=== PATIENT | male | born 1990 | race Caucasian/White ===

== ENCOUNTER 2017-02-21 17:44 | Emergency (ER) | payer OTHER ==
--- NOTE | ~2017-02-21 | CR210 ---
[facility] A Service of [facility] & [facility] RADIOLOGY TEXT RESULTS PATIENT: DAVID PATEL LOCATION: CFTX : 88 UNIT #: [id number] AGE: [address]: Mary Ann Mead APRN SEX: M ORDER DR: [id number] [facility] [address] [place], [place] [address] [id number] E MR#: [id number] Acc #: [id number] NAME: DAVID PATEL : 1990 SEX: M STUDY DATE/TIME: 02/21/2017 20:02 UNIT: [facility] ROOM: STUDY DESCRIPTION: CR Ribs Uni 2 View W PA Ch Lt Attending Physician: Mary Ann Mead A.P.R.N. Ordering Physician: Mary Ann Mead A.P.R.N. Primary Care Physician: Chloe IyerPAlejandraRKiki MEDICAL IMAGING REPORT This report is preliminary unless electronic signature is present EXAM PA chest with left rib detail series (7 images). Date: 02/21/2017 HISTORY Left rib pain. Mild congestion. Fell on concrete. Symptoms present for 3 days. COMPARISON None. FINDINGS Clear lungs. No pleural effusion or pneumothorax. Normal cardiothymic silhouette. No acute displaced left rib fracture is visualized. IMPRESSION No acute chest findings. No displaced left rib fracture. Dictated by... Cyndee Collazo M.D. THIS IS AN ELECTRONICALLY VERIFIED REPORT Cyndee Collazo M.D. at 02/25/2017 8:47 AM EVAN/jasmyne TD: 02/22/2017 02:06 JOB #: [id number] MEDICAL IMAGING REPORT Page 1 of 1 COPY
== END 2017-02-21 20:35 | disposition home or self-care (01) ==
LOC: CFTX 17:44 → CED 17:44 → CFTX 20:22
DX: S20.212A Contusion of left front wall of thorax, initial encounter (principal); F17.210 Nicotine dependence, cigarettes, uncomplicated; W19.XXXA Unspecified fall, initial encounter; Y92.9 Unspecified place or not applicable
CPT/HCPCS: 71101; 96372; 99283; J1885